=== PATIENT | female | born 1990 | race Caucasian/White ===

== ENCOUNTER 2022-04-07 00:51 | Emergency (ER) | payer SELFPAY ==
[~2022-04-07] VITALS: Ht 154.9 cm; Wt 56.7 kg
--- NOTE | 2022-04-07 01:20 | NUR ---
BIBFRKRIS. R WRIST PAIN & SWELLING S/P SLIP AND FALL. DENIES KO. PLACED COMFORTABLY IN BED. VITALS CHECKED.
[2022-04-07] MEDS ORDERED: KETO10TA2 PO ×2 (02:16→02:37)
[2022-04-07] MEDS ORDERED: OXYC-128 PO ×2 (02:16→02:37)
--- NOTE | 2022-04-07 03:15 | NUR ---
Patient discharged to home in stable condition. Written and verbal after care instructions given. Patient verbalizes understanding of instruction. Pt ambulatory with a steady gait
[2022-04-07 03:28] VITALS: BP 108/66
== END 2022-04-07 03:29 | disposition home or self-care (01) ==
LOC: ER 00:59
DX: S52.501A Unspecified fracture of the lower end of right radius, initial encounter for closed fracture (principal); W01.0XXA Fall on same level from slipping, tripping and stumbling without subsequent striking against object, initial encounter; Y93.89 Activity, other specified; Y92.89 Other specified places as the place of occurrence of the external cause; Y99.8 Other external cause status
CPT/HCPCS: 99284; 29125; 73090; 73110; L3763